=== PATIENT | female | born 2000 | race Caucasian/White ===

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

== ENCOUNTER 2018-01-13 08:00 | Outpatient (RCR) | payer BC ==
[~2018-01-13 08:00] MED LIST changes: +SINGULAIR 110 MG/TAB PO; +ZOFRAN ODT4 MG PO; +ZYRTEC 10MG10 MG PO
== END 2018-01-28 13:42 | disposition home or self-care (01) ==
LOC: WSOT 08:00
DX: S62.625D Displaced fracture of middle phalanx of left ring finger, subsequent encounter for fracture with routine healing (principal)